=== PATIENT | female | born 1975 | race Caucasian/White ===

== ENCOUNTER 2022-10-20 11:40 | Outpatient (CLI) | payer OTHER, SELFPAY ==
--- NOTE | ~2022-10-20 | XR_ITS ---
AP and oblique views of the SI joints Clinical history joint pain FINDINGS: SI joints and visualized hip joints are unremarkable. No inflammatory or erosive change beena dent. No sclerosis. IUD noted. Calcified pelvic phleboliths noted. IMPRESSION: No significant abnormality of the SI joints. Reviewed, dictated and finalized at [facility]. MANAGER
--- NOTE | ~2022-10-20 | XR_ITS ---
Left foot Technique: AP and lateral standing views were obtained. Clinical History: Joint pain Findings: No acute fracture or dislocation is seen. Osseous alignment is anatomic. L calcaneal spur n oted. Joint spaces are preserved without erosive or degenerative change. Soft tissues are unremarkabl e. Impression: No fracture or dislocation. Plantar calcaneal spur. Reviewed, dictated and finalized at location . HAIR CLIPPER Impression: No fracture or dislocation. Plantar calcaneal spur.
--- NOTE | ~2022-10-20 | XR_ITS ---
Lumbosacral Spine: AP and lateral views Clinical History: Pain Findings: The normal lordotic curve is maintained. The vertebral bodies and posterior elements are i ntact. The intervertebral disc spaces are preserved. The sacroiliac joints are normally outlined. Impression: No significant abnormality. Reviewed, dictated and finalized at [facility]. IT COLLECTIONS ANALYST Impression: No significant abnormality.
--- NOTE | ~2022-10-20 | XR_ITS ---
EXAMINATION: XR hand BI arthritis min 3V DATE: 10/20/2022 12:34 INDICATION: Joint pain. Recurrent acute iridocyclitis. TECHNIQUE: 4 views of right hand and 4 views of left hand on a total of 7 radiographs were obtained. COMPARISON: None. FINDINGS: RIGHT HAND: Bone alignment is normal. No fracture. There is mild osteoarthritis of first interphalang eal joint, second proximal interphalangeal joint, and fourth distal interphalangeal joint. There are periarticular calcifications at first interphalangeal joint and third proximal interphalangeal joint. LEFT HAND: Bone alignment is normal. No fracture. There is mild osteoarthritis of first carpometacarp al joint, first interphalangeal joint, and second and third distal interphalangeal joints. IMPRESSION: 1. Mild polyarticular osteoarthritis. Reviewed, dictated and finalized at location A. YBOAT OPERATOR
--- NOTE | ~2022-10-20 | XR_ITS ---
Right foot Technique: AP and lateral standing views were obtained. Clinical History: Pain Findings: No acute fracture or dislocation is seen. Osseous alignment is anatomic. Plantar calcaneal spur present. Joint spaces are preserved without erosive or degenerative change. Enthesopathic change at the Achilles tendon insertion noted. Impression: No articular abnormalities evident. Plantar calcaneal spur and enthesopathic change at the Achilles tendon insertion. Reviewed, dictated and finalized at location . MATE Impression: No articular abnormalities evident. Plantar calcaneal spur and enthesopathic change at the Achilles tendon insertio n.
[2022-10-20 12:15] LABS: Hematocrit 43.7 % (37.0-47.0); Hemoglobin 14.3 g/dL (12.0-15.0); Mean Corpuscular HGB Conc 32.7 g/dl (32-36); Mean Corpuscular Hemoglobin 29.1 pg (26-34); Mean Corpuscular Volume 88.8 fl (80-100); Mean Platelet Volume 10.1 fl (7.4-10.4); Platelet Count Result 305 k/mm3 (150-375); Red Blood Count 4.92 M/mm3 (4.2-5.4); Red Cell Distribution Width 13.9 % (11.5-14.5); White Blood Count 7.6 K/mm3 (4.5-10.0)
[2022-10-20 14:10] LABS: Rheumatoid Factor < 8.6 IU/ML (<12)
[2022-10-20 14:11] LABS: Alanine Aminotransferase 41 U/L (6-35); Albumin Level 4.9 g/dL (3.5-5.1); Alkaline Phosphatase 84 U/L (38-126); Anion Gap 9 mmol/L (8-16); Aspartate Amino Transferase 41 U/L (14-36); Bilirubin,Total 0.7 mg/dL (0.2-1.3); Blood Urea Nitrogen 11 mg/dL (7-17); Calcium 8.9 mg/dL (8.4-10.2); Carbon Dioxide 28 mmol/L (22-30); Chloride 103 mmol/L (98-107); Creatine Kinase 55 U/L (30-135); Estimated Glomerular Filt Rate > 60; Glucose 113 mg/dL (65-110); Potassium 3.8 mmol/L (3.4-5.0); Sodium 140 mmol/L (137-145); Uric Acid 4.4 mg/dL (2.5-7.5)
[2022-10-20 14:23] LABS: Vitamin D 25 Hydroxy 21.7 ng/mL
[2022-10-20 14:40] LABS: Hepatitis B Surface Antigen Negative (Negative)
[2022-10-20 14:57] LABS: Hepatitis B Surface Anti Res Negative; Hepatitis C Virus Antibody Negative (Negative)
[2022-10-23 23:33] LABS: SM Antibody <1.0; SM/RNP Antibody <1.0; SS-A <1.0; SS-B <1.0
[2022-10-24 11:49] LABS: Aldolase 5.1 U/L (<=8.1)
[2022-10-24 12:47] LABS: Anti Cyclic Citrullinated Pept <16 Units (<20)
[2022-10-24 21:00] LABS: Lupus dRVVT Screen 37 sec (<=45); PTT-LA Screen 29 sec (<=40)
[2022-10-30 08:39] LABS: CRP 0.5 mg/dL (<1.0)
== END 2022-10-20 11:41 | disposition home or self-care (01) ==
PROVIDERS: PCP Nurse Practitioner Family; Visit Provider Internal Medicine
DX: H20.029 Recurrent acute iridocyclitis, unspecified eye (principal); M19.90 Unspecified osteoarthritis, unspecified site; M19.041 Primary osteoarthritis, right hand; M19.042 Primary osteoarthritis, left hand; M77.31 Calcaneal spur, right foot; M77.32 Calcaneal spur, left foot
CPT/HCPCS: 36415; 72100; 72202; 73130; 73620; 80053; 82085; 82306; 82550; 84550; 85027; 85613; 85730; 86038; 86140; 86200; 86225; 86235; 86430; 86481; 86706; 86803; 87340

== ENCOUNTER 2022-10-27 13:12 | Outpatient (CLI) | payer OTHER, SELFPAY | END 2022-10-27 13:13 | disposition home or self-care (01) | LOC: ANHLAB 13:14 | PROVIDERS: PCP Nurse Practitioner Family; Visit Provider Internal Medicine | DX: H20.029 Recurrent acute iridocyclitis, unspecified eye (principal); M19.90 Unspecified osteoarthritis, unspecified site | CPT/HCPCS: 36415; 86481 ==